=== PATIENT | female | born 1970 | race Caucasian/White ===

== ENCOUNTER → 2017-02-12 | Outpatient (CLI) | payer OTHER ==
[~2017-02-12] MED LIST: ACETAZOLAMIDE250 MG PO; AMITRIPTYLINE H75 MG PO; ATARAX PO; BENTYL20 MG PO; CELEXA PO; CELEXA10 MG PO; CELEXA20 MG PO; CLEOCIN; CYMBALTA PO; HYDROXYZINE HCL10 MG PO; KEFLEX500 MG PO; LOPRESSOR PO; LYRICA100 MG PO; LYRICA75 MG PO; MEDROL4 MG/DOSE- PO; MOTION SICKNESS25 M4 PO; NAPROSYN500 MG PO; NAPROXEN PO; NEURONTIN100 MG PO; PERCOCET 5/321 UDTAB; PERCOCET 7.5-31 EACH PO; PHENERGAN PO; PREMARIN0.9 MG PO; TOPAMAX PO; TYLENOL #3 PO; VICODIN 5/500 T1 TAB PO; VITAMIN B-12; VITAMIN B-12500 MC1 PO; VITAMIN D1000 UNI1 PO; VOLTAREN75 MG PO; XANAX0.5 MG PO; ZOFRAN PO
--- NOTE | ~2017-02-12 | CR231 ---
[facility] A Service [facility] RADIOLOGY TEXT RESULTS PATIENT: ASTRID CONCEPCION LOCATION: [facility] : 74 UNIT #: [id number] AGE: [address]: Mikki Parish MD SEX: F ORDER DR: [id number] [place] [id number] O MR#: [id number] Acc #: [id number] NAME: ASTRID CONCEPCION : 1970 SEX: F STUDY DATE/TIME: 02/12/2017 11:29 [facility] ROOM: STUDY DESCRIPTION: CR Shunt Series Attending Physician: Mikki Parish M.D. Referring Physician: Mikki Parish M.D. Ordering Physician: Mikki Parish M.D. Primary Care Physician: Will Ramos M.D. MEDICAL IMAGING REPORT This report is preliminary unless electronic signature is present. EXAM Shunt series HISTORY Ventriculoperitoneal shunt with pain around the valve for the past month. COMPARISON 07/31/2012. TECHNIQUE Eight films were obtained from the skull to the pelvis. FINDINGS A shunt is seen entering from the right side. The tip is in good position in the midline. No progressive bony erosion is seen at the skull insertion site. No breaking of the catheter or kinking of the catheter is noted. IMPRESSION Negative shunt series. The catheter appears in satisfactory position with no complications seen. Dictated by... Keith Rice M.D. THIS IS AN ELECTRONICALLY VERIFIED REPORT Keith Rice M.D. at 02/14/2017 3:44 PM RLF/afshin TD: 02/14/2017 06:38 [facility] A Service [facility] RADIOLOGY TEXT RESULTS PATIENT: ASTRID CONCEPCION LOCATION: [facility] : 74 UNIT #: [id number] AGE: [address]: Mikki Parish MD SEX: F ORDER DR: RIA #: [id number] MEDICAL IMAGING REPORT Page 1 of 1
== END | disposition home or self-care (01) ==
LOC: SRAD 11:18
DX: Z48.811 Encounter for surgical aftercare following surgery on the nervous system (principal); Z98.2 Presence of cerebrospinal fluid drainage device
CPT/HCPCS: 75809

== ENCOUNTER → 2017-02-12 | Outpatient (CLI) | payer OTHER ==
--- NOTE | ~2017-02-12 | CR181 ---
[facility] A Service of [facility] & [facility] RADIOLOGY TEXT RESULTS PATIENT: ASTRID CONCEPCION LOCATION: [facility] : 74 UNIT #: [id number] AGE: [address]: Will Ramos MD SEX: F ORDER DR: [id number] [place] [id number] O MR#: [id number] Acc #: [id number] NAME: ASTRID CONCEPCION : 1970 SEX: F STUDY DATE/TIME: 02/12/2017 11:29 UNIT: [facility] ROOM: STUDY DESCRIPTION: CR Lumbar Spine 2 or 3 Views Attending Physician: Will Ramos M.D. Referring Physician: Will Ramos M.D. Ordering Physician: Will Ramos M.D. Primary Care Physician: Will Ramos M.D. MEDICAL IMAGING REPORT This report is preliminary unless electronic signature is present. EXAM Lumbar spine, 3 views, 02/12/2017 HISTORY Low back pain with bilateral hip and leg pain for 1 year off and on status post fall 1 year ago. FINDINGS Three views of the lumbar spine demonstrate no fracture. The posterior vertebral bodyline is intact and there is no anterolisthesis or retrolisthesis. The disc spaces are normally maintained. Intrathecal catheter enters the spinal canal at the level of the L3-4 disc and ascends to the level of the eleventh thoracic vertebral body. IMPRESSION Negative lumbar spine. Dictated by... Juan Ascencio M.D. THIS IS AN ELECTRONICALLY VERIFIED REPORT Juan Ascencio M.D. at 02/13/2017 8:20 AM PORSCHE/liliam TD: 02/12/2017 22:06 JOB #: [id number] MEDICAL IMAGING REPORT Page 1 of 1
--- NOTE | ~2017-02-12 | CR150 ---
[facility] A Service of [facility] & [facility] RADIOLOGY TEXT RESULTS PATIENT: ASTRID CONCEPCION LOCATION: [facility] : 74 UNIT #: [id number] AGE: [address]: Will Ramos MD SEX: F ORDER DR: [id number] [place] [id number] O MR#: [id number] Acc #: [id number] NAME: ASTRID CONCEPCION : 1970 SEX: F STUDY DATE/TIME: 02/12/2017 11:29 UNIT: [facility] ROOM: STUDY DESCRIPTION: CR Hip Min 2 Views Lt Attending Physician: Will Ramos M.D. Referring Physician: Will Ramos M.D. Ordering Physician: Will Ramos M.D. Primary Care Physician: Will Ramos M.D. MEDICAL IMAGING REPORT This report is preliminary unless electronic signature is present. EXAM Left hip, 02/12/2017, [facility]. HISTORY 46-year-old woman with left hip and leg pain off and on for a year. Patient fell 1 year ago. FINDINGS AP pelvis with frog-leg lateral view of the left hip demonstrates preservation of the joint space. Mineralization is preserved and cortex intact. Pelvis demonstrates a ventriculoperitoneal shunt catheter looped in the pelvis. Bony pelvis appears intact. IMPRESSION Negative left hip catheter most likely ventriculoperitoneal shunt loops in the midline pelvis. Dictated by... Daquan Bustamante M.D. THIS IS AN ELECTRONICALLY VERIFIED REPORT Daquan Bustamante M.D. at 02/13/2017 8:11 AM ABRAHAM/rebecca TD: 02/12/2017 21:18 JOB #: [id number] MEDICAL IMAGING REPORT Page 1 of 1
== END | disposition home or self-care (01) ==
LOC: SRAD 11:10
DX: M25.552 Pain in left hip (principal); M54.5 Low back pain
CPT/HCPCS: 72100; 73502